=== PATIENT | female | born 1965 | race Two or more races ===

== ENCOUNTER → 2016-09-12 | Outpatient (CLI) | payer OTHER ==
--- NOTE | ~2016-09-12 | ESTC ---
Cardiac Perfusion Imaging Demographics Patient Name BLANK MONZON Gender Female ANA Patient Number [id number] Race Other Visit Number [id number] Ethnicity Corporate ID Room Number Accession Number [id number] Height 65 inches Date of 1965 Weight 174 pounds Interpreting Char Figueroa Date of study 09/12/2016 Physician Supervising MD/NORAP Maurizio Foy APRN NM Technologist Jagruti Bridges Ordering Physician Riki Hassan Stress renal technician Stress ECG Reading Maurizio Foy APRN Nurse Erica Johnson Physician accounts receivable accountant Procedure Type: Nuclear Stress Test:Cardiolite Stress Test Procedure Start time: 09/12/2016 09:15 Indications: Chest pain. Risk Factors The patient risk factors include:hypertension and insulin treated diabetes mellitus. Conclusions Summary Perfusion Images: The overall quality of the study is good. Left ventricular cavity is noted to be normal on the stress and normal on the rest images. There is no evidence of abnormal lung activity. The right ventricle is not visualized an cannot be assessed. Impression ECG portion of lexiscan stress test is clinically negative for ischemia by diagnostic criteria. Myocardial perfusion imaging is normal. Overall left ventricular systolic function was normal without regional wall motion abnormalities. LVEF is 58% and TID ratio is 1.10. There are no previous studies for comparison. Stress Protocols Resting ECG Normal sinus rhythm. Pre-stress physical exam: Patient assessed by Janeen MCLAUGHLIN prior to testing. Chest - CTA Cardio - RRR, S1, S2 Predicted HR: 170 bpm HR response: Appropriate BP response: Appropriate Reason for termination:Infusion complete ECG Findings No ECG changes suggestive of ischemia. Arrhythmias No rhythm abnormality. Symptoms Shortness of breath. Complications Procedure complication: None. Stress Interpretation Appropriate hemodynamic response to Lexiscan. No significant ST-T wave changes with Lexiscan. ECG portion is negative for ischemia by diagnostic criteria. Will correlate with nuclear images. Imaging Results Summed scores - Summed stress score: 5 - Summed rest score: 5 - Summed difference score: 0 Stress ejection Ejection fraction:59 % EDV :99 ml ESV :41 ml Stroke volume :58 ml LV mass :121 gr Imaging Protocols Rest Stress Isotope:Tc99m Sestamibi IV Isotope: Tc99m Sestamibi IV Isotope dose:11.4 mCi Isotope dose:34.2 mCi Date:09/12/2016 08:11 Date:09/12/2016 09:34 Technique: SPECT Technique: Gated Supine SPECT Supine Scan Time:45-60 minutes post Scan Time:45-60 minutes post injection injection Procedure Medications - Regadenoson (Lexiscan) 0.4 mg IV over 10-15 sec. . Medical History Admission Data Admission date: 09/12/2016 Admission Time: 07:47 Hospital Status: Outpatient. Signatures dtt: JUMANA BARFIELD dtd: 09/12/16 0915 Physician Self Edit
== END | disposition disaster alternative care site (69) ==
LOC: GRAD 07:30
DX: R07.9 Chest pain, unspecified (principal); R00.2 Palpitations; I10 Essential (primary) hypertension; E11.9 Type 2 diabetes mellitus without complications
CPT/HCPCS: A9500; J2785